=== PATIENT | male | born 1950 | race Caucasian/White ===

== ENCOUNTER 2017-06-18 04:52 | Inpatient (IN) ==
[2017-06-12 09:33] LABS: URINE MICRO REVIEW NEEDED? NO; URINE SOURCE CLEAN CATCH
[2017-06-12 09:41] LABS: HEMATOCRIT 42.8 % (42.0-52.0); HEMOGLOBIN 14.7 g/dL (14.0-18.0); MCH 32.2 PG (27-31); MCHC 34.3 g/dL (33-37); MCV 93.9 FL (81-99); MPV 10.1 FL (7.4-10.4); RBC 4.56 XMIL (4.7-6.1)
[2017-06-12 09:42] LABS: BILIRUBIN URINE NEGATIVE (NEGATIVE); BLOOD URINE NEGATIVE (NEGATIVE); COLOR YELLOW; GLUCOSE URINE NEGATIVE (NEGATIVE); LEUKOCYTES URINE NEGATIVE (NEGATIVE); NITRITE URINE NEGATIVE (NEGATIVE); PROTEIN URINE NEGATIVE (NEGATIVE); SP GRAVITY URINE 1.012; TURBIDITY URINE CLEAR (CLEAR); UR EPITHELIAL CELLS <10 /HPF (<10); URINE BACTERIA NEGATIVE /HPF; URINE RBC <10 /HPF (<10); URINE WBC <10 /HPF (<10); UROBILINOGEN URINE NORMAL (NORMAL)
[2017-06-12 09:50] LABS: INR 0.97; PROTIME 10.2 Seconds (9.2-11.7)
[2017-06-12 10:02] LABS: AGAP 17; BUN 13 mg/dL (8-22); CALCIUM 9.5 mg/dL (8.8-10.2); CHLORIDE 101 mmol/L (98-107); COSMO 281; POTASSIUM 4.3 mmol/L (3.5-5.1); SODIUM 140 mmol/L (136-145); TCO2 22 mmol/L (25-35)
--- NOTE | 2017-06-12 10:05 | EKG Report ---
Test Performed on : 06/12/2017 08:49:50 AM Test Reason : JOINT CAMP Blood Pressure : / mmHG Vent. Rate : 069 BPM Atrial Rate : 069 BPM P-R Int : 146 ms QRS Dur : 086 ms QT Int : 400 ms P-R-T Axes : 033 024 037 degrees QTc Int : 428 ms Normal sinus rhythm. with sinus arrhythmia. Normal ECG When compared with ECG of 19-MAY-2013 08:07, No significant change was found Confirmed by Ceasar Rodriguez DO ([id number]) on 06/12/2017 6:03:17 PM
[2017-06-18] MEDS ORDERED: PEPCID ONE (06:21)
[2017-06-18] MEDS ORDERED: REGLAN ONE (06:21)
[2017-06-18] MEDS ORDERED: COLACE ONE (06:21)
[2017-06-18] MEDS ORDERED: LYRICA ONE (06:21)
[2017-06-18] MEDS ORDERED: CELEBREX ONE (06:21)
[2017-06-18] MEDS ORDERED: KEFZOL 2 GM/D5W 2 GM/50 ML IVPB ONE (06:22)
[2017-06-18] MEDS ORDERED: LR 1,000 ML ONE (06:22)
[2017-06-18] MEDS ORDERED: QUELICIN (DOSE) ONE (06:46)
[2017-06-18] MEDS ORDERED: XYLOCAINE-MPF 2% ONE (06:46)
[2017-06-18] MEDS ORDERED: DIPRIVAN 1% ONE ×2 (06:50→09:01)
[2017-06-18] MEDS ORDERED: MARCAINE 0.25% PF ONE (07:18)
[2017-06-18] MEDS ORDERED: DURAMORPH ONE (07:18)
[2017-06-18] MEDS ORDERED: TORADOL ONE (07:18)
[2017-06-18] MEDS ORDERED: CYKLOKAPRON 1,000 MG/NS 1,000 MG/100 ML IVPB ONE ×2 (07:19→07:20)
[2017-06-18] MEDS ORDERED: SODIUM CHLORIDE 0.9% ONE (07:19)
[2017-06-18] MEDS ORDERED: VANCOMYCIN ONE (07:19)
[2017-06-18] MEDS ORDERED: NEOSPORIN G.U. IRRIGANT ONE (07:20)
[2017-06-18] MEDS ORDERED: EXPAREL 1.3% ONE (07:20)
[2017-06-18] MEDS ORDERED: VERSED ONE (08:07)
[2017-06-18] MEDS ORDERED: FENTANYL ONE (08:09)
[2017-06-18] MEDS ORDERED: EPHEDRINE ONE (09:01)
[2017-06-18 09:12] LABS: URINE MICRO REVIEW NEEDED? NO; URINE SOURCE CATH
[2017-06-18] MEDS ORDERED: OFIRMEV 1000 MG/ISOTONIC SOLN 1,000 MG/100 ML BOTTLE ONE (09:12)
[2017-06-18] MEDS ORDERED: ZOFRAN ONE (09:12)
[2017-06-18] MEDS ORDERED: DECADRON ONE (09:12)
[2017-06-18 09:26] LABS: BILIRUBIN URINE NEGATIVE (NEGATIVE); BLOOD URINE NEGATIVE (NEGATIVE); COLOR YELLOW; GLUCOSE URINE NEGATIVE (NEGATIVE); LEUKOCYTES URINE NEGATIVE (NEGATIVE); NITRITE URINE NEGATIVE (NEGATIVE); PH URINE 5.5; PROTEIN URINE NEGATIVE (NEGATIVE); SP GRAVITY URINE 1.014; TURBIDITY URINE CLEAR (CLEAR); UR EPITHELIAL CELLS <10 /HPF (<10); URINE BACTERIA NEGATIVE /HPF; URINE RBC <10 /HPF (<10); URINE WBC <10 /HPF (<10); UROBILINOGEN URINE NORMAL (NORMAL)
--- NOTE | 2017-06-18 10:37 | OPERATIVE NOTE ---
PROCEDURE DATE: 06/18/2017 PREOPERATIVE DIAGNOSIS: Degenerative joint disease, left knee. POSTOPERATIVE DIAGNOSIS: Degenerative joint disease, left knee. PROCEDURE PERFORMED: Left total knee replacement. SURGEON: Melody Polk M.D. CONSERVATOR ARTIFACTS: Juani Elias. ANESTHESIA: Spinal. COMPLICATIONS: None. PROCEDURE IN DETAIL: A 66-year-old male presents for a left knee replacement. Risks, benefits, and no guarantees were discussed, and the patient is willing to proceed. He was taken to the operating room, and satisfactory anesthesia obtained. The left leg was prepped and draped in the usual sterile fashion. A time-out was taken to confirm the operative site, procedure, and patient. The leg was wrapped with an Esmarch. Tourniquet inflated to 350 mmHg. A midline incision was made over the front of the knee, followed by a quad tendon-sparing arthrotomy. The patella was everted and resurfaced with freehand technique. With the patella subluxed laterally, the knee was flexed, an intramedullary hole made in the distal femur, and the distal femoral cutting block secured in 5 degrees of valgus. Distal femoral resection was made, and the femur sized to a size 7 DePuy Attune femoral component. The 4-in-1 block was secured, and the anterior, posterior, and chamfer cuts sequentially made. Any osteophytes were debrided about the femur. The knee was flexed, and a PCL retractor placed behind the tibia to protect the PCL neurovascular bundle. The tibial cutting block was secured using both extramedullary alignment and visual inspection. The tibia was then resected over the low medial side, roughly 2 mm below the side. Good flexion and extension gaps were noted. Any osteophytes were debrided about the tibia. The tibia was sized to a size 6 tibial tray. Trial reduction was performed with trial components, with good stability with a 6 mm insert. The patella was sized to a 38 medialized dome patella. Drill holes were placed for the patella and femoral component. All trial components were removed, and the bony surfaces thoroughly irrigated with irrigant pulsatile lavage. Cement with a gram of vancomycin was then utilized to cement a DePuy Attune size 6 rotating platform tibial base plate, size 7 cruciate retaining left femoral component, and a 38 medialized dome patella. Excess cement was removed with a [place] elevator as needed. While the cement cured, the joint capsule was injected with Exparel, and a Hemovac drain placed. After curing of the cement, a size 6 mm rotating platform poly was secured in the tibial tray, and the knee reduced. Final range of motion was 0 to 120 degrees with midline patellar tracking. The arthrotomy was then copiously irrigated with irrigant. It was closed over the drain with #1 Vicryl in the arthrotomy, 2-0 Vicryl in the subcu, and skin mari on the skin edges. Sterile dressings were applied, and tourniquet released with good return of capillary blood flow. No intraoperative complications were noted. Instrument count and sponge count were correct at the time of closure. cc: Wally Polk MD
[2017-06-18] MEDS ORDERED: NS 1,000 ML ONE (10:39)
[2017-06-18] MEDS ORDERED: MILK OF MAGNESIA PO PRN (11:15)
[2017-06-18] MEDS ORDERED: AMBIEN PO PRN (11:15)
[2017-06-18] MEDS ORDERED: MORPHINE IV PRN (11:15)
[2017-06-18] MEDS ORDERED: ZOFRAN IV PRN (11:15)
[2017-06-18] MEDS: OXY IR PO PRN ×3 (13:11→19:01)
[2017-06-18] MEDS: ALTACE PO SCH (14:18)
[2017-06-18] MEDS: CARAFATE PO SCH ×3 (14:21→19:59)
[2017-06-18] MEDS: FISH OIL CONCENTRATE PO SCH (14:22)
[2017-06-18] MEDS: THERA M PLUS PO SCH (14:23)
[2017-06-18] MEDS: GLUCOSAMINE 500 MG/CHONDROITIN 400 MG PO SCH (14:23)
[2017-06-18] MEDS: VITAMIN B-12 PO SCH (14:24)
[2017-06-18] MEDS: VITAMIN E PO SCH (14:24)
--- NOTE | 2017-06-18 14:38 | Diag Imaging Result Doc PS360 ---
KNEE 1-2 VIEWS-LEFT - 06/18/2017 INDICATION: tka TECHNIQUE: Two views COMPARISON: None FINDINGS: There has been left total knee arthroplasty. Alignment is anatomic. No hardware fracture or loosening. There is been patellar resurfacing. IMPRESSION: No complication. Electronically signed by Helder De 06/18/2017 2:36 PM
[2017-06-18] MEDS: ULTRAM PO SCH ×2 (16:13→23:29)
[2017-06-18] MEDS: TYLENOL PO SCH ×2 (16:13→23:29)
[2017-06-18] MEDS: KEFZOL 1 GM/D5W 1 GM/50 ML IVPB IV SCH ×2 (16:14→23:30)
--- NOTE | 2017-06-18 16:18 | PROGRESS NOTE ---
DATE: 06/18/2017 Mr. Oliveira seen today postop status post total knee replacement. At the present time he is afebrile with stable vital signs. His bandage is clean and dry. He appears to be motor and sensory intact. There is no immediate postop complications. He is comfortable at the present time. cc: Wally Polk MD
[2017-06-18] MEDS ORDERED: PNEUMOVAX 23 IM ONE (18:30)
[2017-06-18] MEDS: PERIDEX MT SCH (19:59)
[2017-06-18] MEDS: CELEBREX PO SCH (19:59)
[2017-06-18] MEDS: COLACE PO SCH (19:59)
[2017-06-18] MEDS: LYRICA PO SCH (19:59)
[2017-06-18] MEDS: NS 1,000 ML IV SCH (20:00)
[2017-06-18] MEDS ORDERED: AMBIEN PO SCH (21:00)
[2017-06-19] MEDS: NS 1,000 ML IV SCH ×2 (02:51→02:53)
[2017-06-19] MEDS: PERIDEX MT SCH ×2 (02:53→10:38)
[2017-06-19] MEDS: ULTRAM PO SCH ×2 (04:22→10:39)
[2017-06-19] MEDS: TYLENOL PO SCH ×2 (04:22→10:38)
[2017-06-19 05:28] LABS: HEMATOCRIT 37.2 % (42.0-52.0); HEMOGLOBIN 12.7 g/dL (14.0-18.0)
[2017-06-19 05:44] LABS: AGAP 15; BUN 19 mg/dL (8-22); CALCIUM 8.6 mg/dL (8.8-10.2); CHLORIDE 101 mmol/L (98-107); COSMO 277; POTASSIUM 4.9 mmol/L (3.5-5.1); SODIUM 137 mmol/L (136-145); TCO2 21 mmol/L (25-35)
[2017-06-19] MEDS ORDERED: XARELTO PO SCH (06:00)
[2017-06-19] MEDS ORDERED: SUDAFED PO ONE (06:21)
[2017-06-19] MEDS: OXY IR PO PRN ×2 (06:42→10:46)
[2017-06-19] MEDS ORDERED: PROTONIX PO SCH (07:00)
[2017-06-19] MEDS ORDERED: SYNTHROID PO SCH (07:00)
[2017-06-19] MEDS ORDERED: PEPCID PO SCH (09:00)
[2017-06-19] MEDS: VITAMIN E PO SCH (10:38)
[2017-06-19] MEDS: GLUCOSAMINE 500 MG/CHONDROITIN 400 MG PO SCH (10:38)
[2017-06-19] MEDS: CELEBREX PO SCH (10:38)
[2017-06-19] MEDS: COLACE PO SCH (10:38)
[2017-06-19] MEDS: CARAFATE PO SCH ×2 (10:38→14:02)
[2017-06-19] MEDS: FISH OIL CONCENTRATE PO SCH (10:38)
[2017-06-19] MEDS: VITAMIN B-12 PO SCH (10:39)
[2017-06-19] MEDS: THERA M PLUS PO SCH (10:39)
[2017-06-19] MEDS: LYRICA PO SCH (10:40)
[2017-06-19] MEDS: ALTACE PO SCH (10:40)
[2017-06-19 16:14] VITALS: BP 117/74
--- NOTE | 2017-06-20 07:16 | DISCHARGE SUMMARY ---
ADMISSION DATE: 06/18/2017 DISCHARGE DATE: 06/19/2017 ADMITTING DIAGNOSES: 1. Degenerative joint disease of the left knee. 2. Hypothyroidism. DISCHARGE DIAGNOSES: 1. Degenerative joint disease of the left knee. 2. Hypothyroidism. 3. Acute blood loss anemia. ADMITTING HISTORY AND HOSPITAL COURSE: A 67-year-old male presents for a total knee replacement. He was admitted to the hospital and underwent knee replacement without complication. Postoperatively, he was mobilized, full weightbearing, and steadily progressed. On the first postoperative day, he was independent with transfers. The incision was clean and dry, with no signs of infection or DVT or postop complication. He is discharged home for outpatient followup. He is to resume his home medicines. He will follow up with me in roughly 2 weeks. He is to receive home therapy, and return in the interim for any worsening signs or symptoms. DISCHARGE MEDICATIONS: Include [place] 10 one to two every 4 to 6 hours p.r.n. pain, Xarelto 10 mg daily for 2 weeks, his home medicines consisting of vitamin B12 supplementation, chondroitin glucosamine supplementation, Synthroid 137 mcg daily, multivitamin supplementation, Protonix 40 mg daily, Altace 5 mg daily, sucralfate 1 gram 4 times a day, vitamin E supplementation, Ambien 5 mg at bedtime p.r.n., and Mobic 51 mg daily. cc: Wally Polk MD
== END 2017-06-19 17:02 | disposition home health service (06) ==
LOC: SURHOLD 04:52 → 4N 09:49
PROVIDERS: ADMIT Orthopaedic Surgery Adult Reconstructive Orthopaedic Surgery; ATTEND Orthopaedic Surgery Adult Reconstructive Orthopaedic Surgery